=== PATIENT | female | born 1935 | race Caucasian/White ===

== ENCOUNTER 2017-10-11 14:49 | Emergency (ER) | payer MEDICARE ==
[~2017-10-11] VITALS: Ht 162.6 cm; Wt 60.0 kg
[~2017-10-11 14:49] MED LIST: ASPI-1264 PO; DIGO250T PO; FISH1CAP15 PO; FLEC100T2 PO; GLUC1CAP17 PO; LOSA25TA96 PO; LYSI100013 PO; METO25TA6 PO; MULT-1085 PO; OSC500T PO
[2017-10-11] MEDS ORDERED: glycopyrrolate 0.2mg/ml inj IV ONE (15:25)
[2017-10-11] MEDS ORDERED: normal saline 1000ML IV soln IVB ONE (15:25)
[2017-10-11 15:53] LABS: CLARITY,URINE CLEAR (Clear); COLOR,URINE YELLOW (Yellow); GLUCOSE, URINE NEGATIVE (Neg); KETONES,URINE TRACE mg/dl (Neg); LEUKOCYTE ESTERASE ,URINE NEGATIVE (Neg); NITRITES, URINE NEGATIVE (Neg); OCCULT BLOOD,URINE NEGATIVE (Neg); PROTEIN,URINE 100 mg/dl (Neg); UROBILINOGEN,URINE 0.2 E.U/dL (0.2-1.0)
[2017-10-11 15:57] LABS: UA COLLECTION TYPE CLN CATCH MIDSTREAM
[2017-10-11 15:59] LABS: BACTERIA,URINE FEW /HPF (Neg); CAL OXALATE CRYSTALS 3+ /HPF (NEGATIVE); MUCUS STRANDS FEW /LPF (Neg); RBC,URINE 0-2 /HPF (0-2); SQUAMOUS EPITHELIAL CELL,UR FEW /LPF (FEW)
[2017-10-11 16:02] LABS: BASOPHILS % (AUTO) 0 % (0-1); EOSINOPHILS # (AUTO) 0.1 X10'3 (0-0.9); EOSINOPHILS % (AUTO) 1.3 % (0-6); HEMATOCRIT 30.8 % (35.0-45.0); LYMPHOCYTES # (AUTO) 1.8 X10'3 (1.1-4.8); MEAN CORPUSCULAR HEMOGLOBIN 29.1 PG (27.0-31.0); MEAN CORPUSCULAR HGB CONC 32.5 % (33.0-36.5); MEAN CORPUSCULAR VOLUME 89.5 FL (78-98); MEAN PLATELET VOLUME 6.3 FL (7.4-10.4); MONOCYTES # (AUTO) 1.1 X10'3 (0-0.9); MONOCYTES % (AUTO) 11.4 % (2-12); NEUTROPHILS # (AUTO) 6.8 X10'3 (1.8-7.7); NEUTROPHILS % (AUTO) 69.3 % (42-75); PLATELET COUNT 299 X10'3 (140-440); RED BLOOD COUNT 3.44 X10'6 (4.20-5.60); RED CELL DISTRIBUTION WIDTH 16.1 % (11.5-14.5); WHITE BLOOD COUNT 9.9 X10'3 (4.5-11.0)
[2017-10-11 16:17] LABS: ALANINE AMINOTRANSFERASE 21 U/L (12-78); ALKALINE PHOSPHATASE 83 IU/L (46-116); ANION GAP 11 (8-16); ASPARTATE AMINO TRANSFERASE 24 U/L (10-37); BILIRUBIN,TOTAL 0.6 MG/DL (0.1-1.0); BLOOD UREA NITROGEN 15 MG/DL (7-18); BUN/CREATININE RATIO 15.8 (6.6-38.0); CHLORIDE 103 MMOL/L (99-107); CREATININE 0.95 MG/DL (0.40-0.90); GLUCOSE 111 MG/DL (70-104); INR 1.2 INR; POTASSIUM 3.5 MMOL/L (3.5-5.1); PROTHROMBIN TIME 12.5 SECONDS (9.0-12.0); SODIUM 137 MMOL/L (135-145); TOTAL CARBON DIOXIDE 23.5 MMOL/L (24-32); TOTAL PROTEIN 6.1 G/DL (6.4-8.2); eGFR 57 ML/MIN
[2017-10-11 17:24] VITALS: BP 140/60
[2017-10-12 10:34] LABS: C DIFF ANTIGEN POSITIVE (NEGATIVE); C DIFF SPECIMEN=DIARRHEA? ACCEPTABLE; C DIFFICILE TOXINS A&B POSITIVE (Neg)
== END 2017-10-11 17:25 | disposition home or self-care (01) ==
LOC: ER 14:49
DX: E86.0 Dehydration (principal); R19.7 Diarrhea, unspecified; R10.30 Lower abdominal pain, unspecified; Z95.1 Presence of aortocoronary bypass graft; Z95.0 Presence of cardiac pacemaker; Z79.82 Long term (current) use of aspirin; Z79.899 Other long term (current) drug therapy
CPT/HCPCS: 36415; 71045; 80053; 81001; 84145; 85025; 85610; 87045; 87046; 87077; 87088; 87186; 87324; 87449; 96361; 96374; 99285; J3490; J7030

== ENCOUNTER 2017-10-30 09:54 | Day surgery (SDC) | payer MEDICARE ==
[2017-10-30] VITALS (9 sets, daily range): BP systolic 117–125; BP diastolic 39–57
[~2017-10-30] VITALS: Ht 162.6 cm; Wt 60.5 kg
[2017-10-30] MEDS ORDERED: LIDOcaine 1%/PF 5ML 10 MG/ML VIAL SQ STA (10:03)
[2017-10-30] MEDS ORDERED: APIX2.5T PO (10:26)
[2017-10-30] MEDS ORDERED: FERR325T28 PO (10:26)
[2017-10-30] MEDS ORDERED: ASCO500C15 PO (10:26)
[2017-10-30] MEDS ORDERED: FURO-150 PO (10:26)
[2017-10-30] MEDS ORDERED: OMEG1CAP13 PO (10:26)
[2017-10-30] MEDS ORDERED: LACT1CAP65 PO (10:27)
[2017-10-30] MEDS ORDERED: POTA10TA19 PO (10:27)
== END 2017-10-30 12:25 | disposition home or self-care (01) ==
LOC: SSTAY O 09:54
PROVIDERS: ATTEND Radiology Diagnostic Radiology
DX: J90 Pleural effusion, not elsewhere classified (principal); I48.91 Unspecified atrial fibrillation; I35.1 Nonrheumatic aortic (valve) insufficiency; I10 Essential (primary) hypertension; Z79.01 Long term (current) use of anticoagulants; Z87.891 Personal history of nicotine dependence; Z79.82 Long term (current) use of aspirin; Z95.0 Presence of cardiac pacemaker; Z95.2 Presence of prosthetic heart valve; Z95.1 Presence of aortocoronary bypass graft; Z79.899 Other long term (current) drug therapy; Z98.890 Other specified postprocedural states
CPT/HCPCS: 32555; 36415; 71045; J2001

== ENCOUNTER 2021-11-26 06:02 | Day surgery (SDC) | payer MEDICARE ==
[~2021-11-26] VITALS: Ht 162.6 cm; Wt 58.6 kg
[~2021-11-26 06:02] MED LIST changes: +APIX2.5T PO; +ASCO500C18 PO; -ASPI-1264 PO; -DIGO250T PO; +FERR325T28 PO; -FISH1CAP15 PO; +FURO-150 PO; -GLUC1CAP17 PO; +LACT1CAP65 PO; +LOP25T PO; -LOSA25TA96 PO; -LYSI100013 PO; -METO25TA6 PO; +OMEG1CAP13 PO; -OSC500T PO; +POTA-192 PO
[2021-11-26] MEDS ORDERED: amiodarone 150mg/dext, iso-os 100 ML IV ONE (06:30)
[2021-11-26] MEDS ORDERED: MIDAZolam 1mg/ml 10ml vial IV ONE (06:30)
[2021-11-26] MEDS ORDERED: atropine 0.1mg/ml 10ml syringe IV ONE (06:30)
[2021-11-26] MEDS ORDERED: LORazepam 0.5 MG tablet PO ONE (06:30)
[2021-11-26] MEDS ORDERED: morphine 10mg/ml inj. IV ONE (06:30)
[2021-11-26] MEDS ORDERED: diphenhydrAMINE 25mg capsule PO ONE (06:30)
[2021-11-26] MEDS ORDERED: POTA-207 PO (06:32)
[2021-11-26] MEDS ORDERED: METO50TA16 PO (06:32)
[2021-11-26] MEDS ORDERED: AMIO200T61 PO (06:32)
[2021-11-26] MEDS ORDERED: FURO40TA4 PO (06:32)
[2021-11-26] MEDS ORDERED: SELE200T25 PO (06:33)
[2021-11-26 06:49] VITALS: BP 175/82
[2021-11-26 07:28] LABS: BASOPHILS % (AUTO) 0.5 % (0-1); EOSINOPHILS # (AUTO) 0.1 X10'3 (0-0.9); EOSINOPHILS % (AUTO) 1.6 % (0-6); HEMATOCRIT 36.6 % (35.0-45.0); HEMOGLOBIN 12.4 g/dl (12.0-16.0); LYMPHOCYTES # (AUTO) 1.4 X10'3 (1.1-4.8); LYMPHOCYTES % (AUTO) 30.8 % (21-51); MEAN CORPUSCULAR HEMOGLOBIN 30.3 PG (27.0-31.0); MEAN CORPUSCULAR HGB CONC 33.7 g/dL (33.0-36.5); MEAN CORPUSCULAR VOLUME 89.8 FL (78-98); MEAN PLATELET VOLUME 7.2 FL (7.4-10.4); MONOCYTES # (AUTO) 0.4 X10'3 (0-0.9); MONOCYTES % (AUTO) 9.4 % (2-12); NEUTROPHILS # (AUTO) 2.7 X10'3 (1.8-7.7); NEUTROPHILS % (AUTO) 57.7 % (42-75); PLATELET COUNT 174 X10'3 (140-440); RED BLOOD COUNT 4.08 X10'6 (4.20-5.60); WHITE BLOOD COUNT 4.7 X10'3 (4.5-11.0)
[2021-11-26 07:37] LABS: ANION GAP 10 (8-16); BLOOD UREA NITROGEN 24 MG/DL (7-18); BUN/CREATININE RATIO 21.4 (6.6-38.0); CALCIUM 8.8 MG/DL (8.5-10.1); CHLORIDE 108 MMOL/L (99-107); CREATININE 1.12 MG/DL (0.40-0.90); GLUCOSE 99 MG/DL (70-104); POTASSIUM 3.9 MMOL/L (3.5-5.1); SODIUM 147 MMOL/L (135-145); TOTAL CARBON DIOXIDE 29.2 MMOL/L (24-32); eGFR 46 ML/MIN
--- NOTE | 2021-11-26 07:45 | NUR ---
Caro from [facility] here to evaluate pacemaker and heart rhythm. Determined to be in SR. Caro notified Dr. Horner.
--- NOTE | 2021-11-26 08:15 | NUR ---
DC pt to home. Amb to private car gait steady.
== END 2021-11-26 08:15 | disposition home or self-care (01) ==
LOC: SSTAY O 06:02
PROVIDERS: ATTEND Internal Medicine Cardiovascular Disease
DX: I48.91 Unspecified atrial fibrillation (principal); Z53.8 Procedure and treatment not carried out for other reasons; Z95.0 Presence of cardiac pacemaker; I49.5 Sick sinus syndrome; I50.32 Chronic diastolic (congestive) heart failure; Z95.2 Presence of prosthetic heart valve; I11.0 Hypertensive heart disease with heart failure; E78.5 Hyperlipidemia, unspecified; Z79.899 Other long term (current) drug therapy; Z98.890 Other specified postprocedural states; Z86.73 Personal history of transient ischemic attack (TIA), and cerebral infarction without residual deficits; F17.210 Nicotine dependence, cigarettes, uncomplicated
CPT/HCPCS: 36415; 80048; 85025; 93005; J7030; A4620

== ENCOUNTER 2021-12-04 12:32 | Outpatient (CLI) | payer MEDICARE ==
[~2021-12-04 12:32] MED LIST changes: +AMIO200T61 PO; -ASCO500C18 PO; -FERR325T28 PO; -FLEC100T2 PO; -FURO-150 PO; +FURO40TA4 PO; -LOP25T PO; +METO50TA16 PO; -POTA-192 PO; +POTA-207 PO; +SELE200T25 PO
== END 2021-12-04 23:59 | disposition home or self-care (01) ==
LOC: CARD DIAG 12:32
PROVIDERS: ATTEND Internal Medicine Cardiovascular Disease
DX: I08.1 Rheumatic disorders of both mitral and tricuspid valves (principal); I70.0 Atherosclerosis of aorta; J44.9 Chronic obstructive pulmonary disease, unspecified; Q25.46 Tortuous aortic arch; I48.91 Unspecified atrial fibrillation; Z95.0 Presence of cardiac pacemaker; Z95.2 Presence of prosthetic heart valve; Z79.899 Other long term (current) drug therapy
CPT/HCPCS: 71046; 93306; 94010; 94727; 94729

== ENCOUNTER 2023-09-16 12:25 | Outpatient (CLI) | payer MEDICARE ==
[~2023-09-16 12:25] MED LIST changes: +AMI200T PO; -AMIO200T61 PO; +OMEG-5 PO; -OMEG1CAP13 PO
== END 2023-09-16 23:59 | disposition home or self-care (01) ==
LOC: RT 12:25
PROVIDERS: ATTEND Internal Medicine Cardiovascular Disease
DX: R06.02 Shortness of breath (principal); Z79.899 Other long term (current) drug therapy
CPT/HCPCS: 85018; 94010; 94727; 94729

== ENCOUNTER 2024-03-04 11:32 | Day surgery (SDC) | payer MEDICARE ==
[2024-03-04] VITALS (21 sets, daily range): BP systolic 100–146; BP diastolic 33–74; PULSE 65–95; RESP 10–12; TEMP 98.2; O2SAT 93–99
[~2024-03-04] VITALS: Ht 162.6 cm; Wt 55.9 kg
[2024-03-04] MEDS ORDERED: normal saline 1000ml 1,000 ML IV SCH (12:20)
[2024-03-04] MEDS ORDERED: diphenhydrAMINE 25mg capsule PO ONE (12:20)
[2024-03-04] MEDS ORDERED: LORazepam 0.5 MG tablet PO ONE (12:20)
[2024-03-04] MEDS ORDERED: atropine 0.1mg/ml 10ml syringe IV ONE (12:20)
[2024-03-04] MEDS ORDERED: SOTA80TA73 PO (12:30)
[2024-03-04] MEDS ORDERED: OMEP20CA16 PO (12:30)
[2024-03-04] MEDS ORDERED: APIX5TAB3 PO (12:30)
[2024-03-04] MEDS ORDERED: CHOL500050 PO (13:14)
[2024-03-04] MEDS ORDERED: Iron Sulfate PO (13:14)
[2024-03-04] MEDS ORDERED: ACET600C5 PO (13:14)
[2024-03-04] MEDS ORDERED: MAGN400C3 PO (13:19)
[2024-03-04] MEDS ORDERED: CALC1CAP13 (13:19)
[2024-03-04] MEDS ORDERED: OMEG1CAP46 PO (13:19)
[2024-03-04] MEDS ORDERED: VITA-268 PO (13:19)
[2024-03-04] MEDS ORDERED: GLUC1CAP36 PO (13:19)
[2024-03-04 13:23] LABS: BASOPHILS % (AUTO) 0.8 % (0-1); EOSINOPHILS # (AUTO) 0.1 X10'3 (0-0.9); HEMATOCRIT 32.7 % (35.0-45.0); LYMPHOCYTES # (AUTO) 1.7 X10'3 (1.1-4.8); LYMPHOCYTES % (AUTO) 39.1 % (21-51); MEAN CORPUSCULAR HEMOGLOBIN 31.3 PG (27.0-31.0); MEAN CORPUSCULAR HGB CONC 33.7 g/dL (33.0-36.5); MEAN CORPUSCULAR VOLUME 92.9 FL (78-98); MEAN PLATELET VOLUME 7.6 FL (7.4-10.4); MONOCYTES # (AUTO) 0.6 X10'3 (0-0.9); MONOCYTES % (AUTO) 12.7 % (2-12); NEUTROPHILS % (AUTO) 45.4 % (42-75); PLATELET COUNT 139 X10'3 (140-440); RED BLOOD COUNT 3.52 X10'6 (4.20-5.60); RED CELL DISTRIBUTION WIDTH 15.4 % (11.5-14.5); WHITE BLOOD COUNT 4.4 X10'3 (4.5-11.0)
[2024-03-04 13:28] LABS: INR 1.1 INR; PROTHROMBIN TIME 11.8 SECONDS (9.0-12.0)
[2024-03-04 13:29] LABS: ALBUMIN 3.7 G/DL (3.4-5.0); ANION GAP 8 (8-16); BLOOD UREA NITROGEN 20 MG/DL (7-18); CALCIUM 8.7 MG/DL (8.5-10.1); CHLORIDE 108 MMOL/L (99-107); CREATININE 1.11 MG/DL (0.40-0.90); GLUCOSE 85 MG/DL (70-104); POTASSIUM 3.8 MMOL/L (3.5-5.1); SODIUM 143 MMOL/L (135-145); TOTAL CARBON DIOXIDE 27.1 MMOL/L (24-32); eCRCL 31 ML/MIN; eGFR 47 ML/MIN
[2024-03-04] MEDS: MIDAZolam 1mg/ml 10ml vial IV ONE (13:51)
[2024-03-04] MEDS: morphine 10mg/ml inj. IV ONE (13:51)
[2024-03-04] MEDS: amiodarone 150mg/dext, iso-os 100 ML IV ONE (13:58)
[2024-03-04] MEDS ORDERED: METO-384 PO (15:21)
[2024-03-04] MEDS ORDERED: APIX2.5T PO (15:21)
== END 2024-03-04 16:40 | disposition home or self-care (01) ==
LOC: SSTAY O 11:32
PROVIDERS: ATTEND Internal Medicine Cardiovascular Disease
DX: I48.19 Other persistent atrial fibrillation (principal); E78.5 Hyperlipidemia, unspecified; I11.0 Hypertensive heart disease with heart failure; I50.32 Chronic diastolic (congestive) heart failure; I25.10 Atherosclerotic heart disease of native coronary artery without angina pectoris; Z78.0 Asymptomatic menopausal state; Z95.2 Presence of prosthetic heart valve; Z86.73 Personal history of transient ischemic attack (TIA), and cerebral infarction without residual deficits
CPT/HCPCS: 36415; 80048; 85025; 85610; 92960; 93005; J0282; J2250; J2270; J7030; J2274